=== PATIENT | female | born 1960 | race Two or more races ===

== ENCOUNTER → 2018-05-08 | Emergency (ER) | payer OTHER ==
[~2018-05-08] VITALS: Ht 157.5 cm; Wt 89.4 kg
[~2018-05-08] MED LIST: ASA81 MG PO; COZAAR25 MG PO; DIPRIVAN; DULCOLAX STOOL100 MG PO; LAMICTAL150 MG PO; NEURONTIN300 MG; SIMBALTA; SYNTHROID50 MCG PO; SYNTHROID88 MCG PO
== END | disposition home or self-care (01) ==
LOC: ER 20:38
DX: K59.09 Other constipation (principal)